=== PATIENT | male | born 1995 | race Two or more races ===

== ENCOUNTER 2021-01-27 09:04 | Emergency (ER) | payer OTHER, SELFPAY ==
[2021-01-27 09:28] VITALS: BP 145/99; PULSE 63; RESP 18; TEMP 36.7; O2SAT 97; BMI 23.0
--- NOTE | 2021-01-27 09:48 | ED_ITS ---
HPI - General Adult General Chief complaint: Upper Respiratory Symptoms Stated complaint: COUGH IN AM VOMITING Time Seen by Provider: 01/27/21 09:48 Source: patient Mode of arrival: ambulatory Limitations: no limitations History of Present Illness HPI narrative: 25-year-old male is here today for complaining of epigastric symptoms. He reports that when he wakes up in the morning he often has a nausea and vomiting. Patient denies any late night snacking denies any dysphagia, dyspepsia or odynophagia. Denies any constipation, diarrhea or abdominal pain. He reports that he smoked marijuana and started coughing and the cough made him gag and vomit. Patient reports that he smoked couple days ago. Patient denies any other symptoms. Denies any fever or chills, denies any ill contacts. No change in his diet Onset (ago): day(s) Related Data Previous Rx's Medication Instructions Recorded omeprazole 20 mg capsule,delayed 20 mg PO DAILY #20 cap 01/27/21 release ondansetron 4 mg disintegrating 4 mg PO Q8H PRN #7 tab 01/27/21 tablet Allergies Allergy/AdvReac Type Severity Reaction Status Date / Time No Known Allergies Allergy Verified 01/27/21 09:27 Review of Systems Review of Systems: Constitutional : No Weight loss, No Fever, No Chills, No Night Sweats, No Fatigue, No Malaise ENT/Mouth : No Hearing loss, No Ear Pain, No Nasal Congestion, No Sinus Pain, No Hoarseness, No sore throat, No Rhinorrhea, No Swallowing Difficulty Eyes: No Eye Pain, No Swelling, No Redness, No Foreign Body, No Discharge, No Vision Changes Cardiovascular : No Chest Pain, No SOB, No Dyspnea on Exertion, No Orthopnea, No Edema, No Palpitations Respiratory : No Cough, No Sputum, No Wheezing, No Smoke Exposure, No Dyspnea Gastrointestinal : Nausea, Vomiting, No Diarrhea, No Constipation, No abdominal Pain, No Hematochezia, No Melena Genitourinary : no irregular bleeding, No Dysuria, No Urinary Frequency, No Hematuria, No Urinary Incontinence, No Urgency, No Flank Pain, No Urinary Flow Changes, No Hesitancy Musculoskeletal : No joint pain, No Myalgias, No Joint Swelling Skin : No Skin Lesions, No rash Neuro : No Weakness, No Numbness, No Paresthesias, No Loss of Consciousness, No Dizziness, No Headache Yes all other systems are reviewed and are negative PMFSH Past Medical History Medical History (Updated 01/27/21 @ 11:08 by Kavya Ibnaez [facility]) Polycystic kidney disease Social History Social History Advance Directives: No Advance Directives Information Provided: No Physical Exam Vital Signs: Vital Signs: Last Vital Signs Temp 98.1 F 01/27/21 09:28 Pulse 63 01/27/21 09:28 Resp 18 01/27/21 09:28 BP 145/99 H 01/27/21 09:28 Pulse Ox 97 01/27/21 09:28 Body Mass Index 23.0 Const: General: healthy appearing, no acute distress and well developed Nutritional Appearance: well nourished Orientation/consciousness: patient oriented x3 HENMT: Head: Yes normal to inspection, Yes normocephalic and Yes atraumatic Neck: Neck: Yes normal visual inspection, Yes full ROM and Yes trachea midline Thyroid: Thyroid normal Resp: Auscultation: clear to auscultation bilaterally Cardio: Rate: regular rate Rhythm: regular rhythm Heart sounds: S1 normal heart sound present and S2 normal heart sound present GI: Inspection: Yes normal to inspection and No distended Palpation (GI): Soft to palpation, nontender, no guarding and No hepatosplenomegaly present Auscultation: normal bowel sounds Skin: General skin exam: elasticity normal, turgor normal and dry skin Neuro: General: patient oriented x3 Course Course Course Narrative: 25-year-old male is here today for complaining of nausea and vomiting. Patient reports that this usually happens in the morning when he wakes up. Patient reports that he smoked marijuana few days ago, started coughing which made him gag and vomit. He has not had any ill contact, no fever or chills. Denies any abdominal pain, discomfort, diarrhea, constipation. Patient reports that he does have occasional acid reflux without dyspepsia, dysphagia or odynophagia. His symptoms are usually in the morning. Patient denies any late night snacking. Likely viral. Will order COVID test medicate him with omeprazole Reevaluation(s) Reevaluation #1: COVID test negative. Will send patient home with omeprazole, he can take that in the morning I will give him script for Zofran and he can take that on as needed basis. Patient will need to follow-up with his primary care provider or general service officer. Patient is agreeable to this plan and verbalizes understanding of instructions . He was given the opportunity to ask questions and all questions answered Medical Decision Making Lab Data Labs: Lab Results 01/27/21 Range/Units 09:39 COVID-19 (NAJMA) Negative (Negative) COVID-19 Clin Com See Note Discharge Plan Discharge Clinical Impression: Viral gastritis Patient Disposition: Home, Self-Care Instructions: Gastritis (ED) Additional Instructions: You were seen here today for nausea, vomiting. Your symptoms are most likely viral. You were giving medication to help reduce the acid reflux. You will be giving script for that as well. You will also receive a script for nausea medicine. Please follow-up with your primary care doctor and general service officer if you continue to have those symptoms. You may return to emergency department if her symptoms will get worse or if you experience any additional concerning symptoms Prescriptions: New omeprazole 20 mg capsule,delayed release(DR/EC) 20 mg PO DAILY Qty: 20 RF: 0 ondansetron 4 mg tablet,disintegrating 4 mg PO Q8H PRN (Reason: nausea and vomiting) Qty: 7 RF: 0 Stand Alone Forms: Work/School Release Interventions: ED Discharge Assessment Last Done: 01/27/21 11:19 Discharge Date/Time: 01/27/21 11:19
[2021-01-27 10:24] LABS: COVID-19 Test Negative (Negative); IDNOW Serial# 9DD0AD1C
[2021-01-27] MEDS: Omeprazole 20 MG CAPSULE.DR PO (10:53)
== END 2021-01-27 11:19 | disposition home or self-care (01) ==
PROVIDERS: Emergency Provider Emergency Medicine
DX: A08.4 Viral intestinal infection, unspecified (principal); Z20.822 Contact with and (suspected) exposure to COVID-19
CPT/HCPCS: 36415; 87635; 99283

== ENCOUNTER 2023-12-29 09:59 | Inpatient (IN) | payer MEDICAID, SELFPAY ==
[2023-12-29 10:12] VITALS: BP 139/76; BP 156/96; PULSE 106; PULSE 72; RESP 18; TEMP 37.1; O2SAT 96; O2SAT 98; BMI 19.8
[2023-12-29 10:16] VITALS: RESP 16
--- NOTE | 2023-12-29 10:17 | PC.NURSE ---
patient refusing [employer] exchange administrator at this time
[2023-12-29 10:37] LABS: Appearance Urine Clear; Color Urine Yellow; Glucose Urine UA Negative (Negative); Leukocyte Esterase Urine Trace (Negative); Nitrite Urine Negative (Negative); PH 6.5 (5.0-9.0); UMIC TRIGGER UACC YES; Urine Blood Negative (Negative); Urine Ketones Trace mg/dL (Negative); Urine Protein 100 (2+) mg/dL (Neg-Trace)
--- NOTE | 2023-12-29 10:37 | PC.NURSE ---
pt changed over, now talking with NHAN Moran
[2023-12-29 10:42] LABS: Bacteria Urine None Seen (None Seen); Hyaline Casts Urine 0-2 /LPF (0-2); RBC Urine 0-2 /HPF (0-2); Squamous Epithelial Cell Urine 0-2 /HPF (0-2); WBC Urine 0-5 /HPF (0-5)
[2023-12-29 10:53] LABS: Amphetamine Screen Urine Not Detected (Not Detect); Barbiturates, Urine Not Detected (Not Detect); Benzodiazepines Screen Urine Not Detected (Not Detect); Buprenorphine Scr Not Detected (Not Detect); Cannabinoid Screen Urine POSITIVE (Not Detect); Cocaine Screen Urine Not Detected (Not Detect); Fentanyl, urine Not Detected (Not Detect); Methadone Screen, Urine Not Detected (Not Detect); Opiate Screen Urine Not Detected (Not Detect); Oxycodone Screen Urine Not Detected (Not Detect); Phencyclidine Screen Urine Not Detected (Not Detect)
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
[2023-12-29 11:07] LABS: MANUAL DIFF FLAG NO
[2023-12-29 11:15] LABS: Basophils Percent Auto 0.3 % (0-2); Eosinophils Absolute Auto 0.1 X10*3/uL (0.0-0.4); Eosinophils Percent Auto 1.8 % (0-4); Hematocrit 47.2 % (42.0-52.0); Hemoglobin 15.7 g/dl (14.0-18.0); Imm Gran Abs Auto 0.02 X10*3/uL (0.00-0.03); Imm Gran Pct Auto 0.3 % (0.0-0.4); Lymphocytes Absolute Auto 1.4 X10*3/uL (1.2-4.9); Mean Corpuscular HGB Conc 33.3 g/dl (31.0-36.0); Mean Corpuscular Volume 87.1 fL (80.0-98.0); Mean Platelet Volume 10.1 fL (9.4-12.4); Monocytes Absolute Auto 0.5 X10*3/uL (0.1-1.2); Monocytes Percent Auto 7.7 % (2-11); Neutrophils Absolute Auto 4.2 x10*3/uL (2.0-8.3); Neutrophils Percent Auto 67.9 % (45-73); Platelet Count 246 X10*3/uL (160-400); Red Blood Count 5.42 X10*6/uL (4.60-5.80); Red Cell Distribution Width 12.5 % (11.0-16.0); White Blood Count 6.2 X10*3/uL (4.8-10.8)
[2023-12-29 11:19] LABS: Carbon Monoxide POC 5.6 %
[2023-12-29 11:25] LABS: Carbon Monoxide Refer to POC result
--- NOTE | 2023-12-29 11:28 | ECG_ITS ---
Test Reason : CO2 POISONING Blood Pressure : / mmHG Vent. Rate : 057 BPM Atrial Rate : 057 BPM P-R Int : 140 ms QRS Dur : 090 ms QT Int : 390 ms P-R-T Axes : 057 067 073 degrees QTc Int : 379 ms Sinus bradycardia Abnormal ECG When compared with ECG of 06-JAN-2005 15:48, PREVIOUS ECG IS PRESENT No significant change was found Referred By: Luisa Mccarty Electronically Signed By:JOAQUIN HERNANDEZ
[2023-12-29 11:34] LABS: Acetaminophen LAB < 3 mcg/mL (<30); Alanine Aminotransferase 47 U/L (0-40); Alkaline Phosphatase 65 U/L (39-117); Anion Gap 14 (12-20); Aspartate Amino Transferase 42 U/L (5-37); Bilirubin Total 0.7 mg/dL (0.0-1.0); Blood Urea Nitrogen 14 mg/dL (9-16); Calcium 10.4 mg/dL (8.4-10.2); Carbon Dioxide 26 mmol/L (22-29); Chloride 104 mmol/L (96-108); Creatinine Clr Calc Pharmacy 100.7; Estimated Glomerular Filt Rate > 60; Ethanol < 10 mg/dL; Glucose Random 106 mg/dL (60-115); Potassium 3.9 mmol/L (3.3-5.1); Salicylate < 5.0 mg/dL (15-30); Sodium 140 mmol/L (135-145); Total Protein 7.8 g/dL (6.5-8.0)
--- NOTE | 2023-12-29 11:35 | PC.NURSE ---
Patient reports he is a heavy week smoker, states smoked nicotine heavily until last 2-3 months
[2023-12-29 11:51] LABS: Venous Blood Gas Refer to POC result
[2023-12-29 11:52] LABS: VBG Base Excess 3.5 mmol/L; VBG HCO3 27 mmol/L (22-26); VBG pCO2 40 mmHg; VBG pH 7.44 (7.32-7.43); VBG pO2 80 mmHg
--- NOTE | 2023-12-29 12:35 | PC.NURSE ---
Patient placed on non-rebreather per order. 1:1 at bedside, patient clam and cooperative
[2023-12-29 13:00] LABS: Carbon Monoxide Refer to POC result
[2023-12-29 13:00] LABS: Carbon Monoxide POC 3.1 %
--- NOTE | 2023-12-29 13:03 | PC.NURSE ---
per order patient removed from non-rebreather after 1 hour and labs drawn, provider aware
--- NOTE | 2023-12-29 13:29 | PC.NURSE ---
pt brought back to pod, report received from fadumo simpson. Pt tearful, speaking on phone at this time
[2023-12-29 15:18] VITALS: BP 115/66; PULSE 61; RESP 18; TEMP 37.7; O2SAT 98
--- NOTE | 2023-12-29 19:23 | PC.NURSE ---
patient appears to remain at rest at present respirations are even and ulabored patient appears in no distress.
[2023-12-29 19:49] VITALS: BP 114/85; PULSE 84; RESP 18; TEMP 36.8; O2SAT 97
[2023-12-30 06:29] VITALS: BP 125/80; PULSE 69; RESP 16; TEMP 36.6; O2SAT 98
--- NOTE | 2023-12-30 06:59 | PC.NURSE ---
Assumed care of patient at 0645, patient appears to be sleeping, respirations even and unlabored, no apparent distress noted. Continue plan of care for inpatient bedsearch on section 12a
[2023-12-30 14:08] VITALS: BP 126/80; PULSE 78; RESP 14; TEMP 36.8; O2SAT 99
[2023-12-30 19:43] VITALS: BP 113/89; PULSE 91; RESP 20; TEMP 36.8; O2SAT 98
[2023-12-31 06:05] VITALS: BP 128/77; PULSE 60; RESP 18; TEMP 36.2; O2SAT 99
--- NOTE | 2023-12-31 09:15 | PC.NURSE ---
Home Medications Spoke with patient - he does not take medications at home.
[2023-12-31 12:59] VITALS: BP 125/81; PULSE 66; RESP 14; TEMP 36.1; O2SAT 98
[2023-12-31 14:03] VITALS: BP 126/84; PULSE 75; TEMP 36.6; O2SAT 100
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
[2023-12-31] MEDS: FLUoxetine HCl 20 MG CAPSULE PO (16:04)
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
--- NOTE | 2023-12-31 16:22 | PC.NURSE ---
PT SIGNED A 3 DAY 12/31/23, UP 01/03/24.
[2023-12-31 19:11] VITALS: BP 136/88; PULSE 71; TEMP 36.9; O2SAT 98
[2023-12-31] MEDS: traZODone HCL 50 MG TABLET PO ×2 (21:03→21:59)
[2023-12-31] MEDS: guanFACINE HCl ER 1 MG TAB.ER.24H PO (21:03)
[2023-12-31] MEDS: hydrOXYzine HCL 25 MG TABLET PO (21:59)
[2024-01-01 08:14] LABS: Estimated Average Glucose 100 mg/dL; Hemoglobin A1c % 5.1 % (<6.0)
[2024-01-01 08:24] LABS: Cholesterol 166 mg/dL (<200); HDL Cholesterol 36 mg/dL (>40); LDL Cholesterol Calculated 117 mg/dL (<100); Triglycerides 68 mg/dL (<150)
[2024-01-01 08:41] LABS: Free T4 (Free Thyroxine) 1.03 ng/dL (0.71-1.85); Thyroid Stimulating Hormone 0.63 uIU/mL (0.32-4.0)
[2024-01-01 08:54] LABS: Folate 12.6 ng/mL (> or = 4.0); Vitamin B12 700 pg/mL (200-900)
[2024-01-01] MEDS: Omeprazole 20 MG CAPSULE.DR PO (08:55)
[2024-01-01] MEDS: FLUoxetine HCl 20 MG CAPSULE PO (08:55)
[2024-01-01] MEDS: hydrOXYzine HCL 25 MG TABLET PO ×3 (08:58→22:03)
--- NOTE | 2024-01-01 15:08 | P.PNPSI_ITS ---
Subjective Subjective Date of Service: 01/01/24 Reason For Visit: Interim History: friendly, calm, cooperative, grateful. reports having slept well after having taken trazodone 100 and hydroxyzine 50 last night. agreeable to increase intuniv to 2 mg tonight and schedule trazodone 100 QHS. mood a lot better. slept 8 hrs. trazodone to slep. 3-day up . Mental Status Exam Mental Status Exam Narrative: adequately dressed and groomed. cooperative, pleasant. no PMA/PMR. speech nml rate, amount, loudness, tone, latency. thoughts linear and logical affect full range, normo-intense, non-labile. mood a lot better. denies SI/SIBI/HI/AVH. Diagnostics Vital Signs (24Hr): Vital Signs - 24 hr 12/31/23 19:11 Temperature 98.4 F Pulse Rate 71 Blood Pressure 136/88 Pulse Oximetry 98 Oxygen Delivery Method Room Air BMI result Body Mass Index 19.8 Labs 12/29/23 11:03 12/29/23 11:04 Labs: Laboratory Results - last 48 hr 01/01/24 07:54 Estimat Average Glucose 100 Hemoglobin A1c % 5.1 Triglycerides 68 Cholesterol 166 LDL Cholesterol, Calc 117 H HDL Cholesterol 36 L Vitamin B12 700 Folate 12.6 TSH 0.63 Free T4 1.03 Medications Medications Current Medications Acetaminophen (Acetaminophen 325 Mg Tablet) 650 mg PO Q6H PRN PRN Reason: Headache/Pain Mild Scale (1-3) Al Hydroxide/Mg Hydroxide (Magnesium Hydrox/Alum Hydrox 30 Ml Oral.Susp) 30 ml PO Q6H PRN PRN Reason: Heartburn/Nausea Fluoxetine HCl (Fluoxetine Hcl 20 Mg Capsule) 20 mg PO DAILY [facility] Last Admin: 01/01/24 08:55 Dose: 20 mg Guanfacine HCl (Guanfacine Hcl Er 2 Mg Tab.Er.24h) 2 mg PO BEDTIME [facility] Hydroxyzine HCl (Hydroxyzine Hcl 25 Mg Tablet) 25 mg PO Q6H PRN PRN Reason: Anxiety Last Admin: 01/01/24 08:58 Dose: 25 mg Magnesium Hydroxide (Milk Of Magnesia 30 Ml Oral.Susp) 30 ml PO DAILY PRN PRN Reason: Constipation Nicotine Polacrilex (Nicotine Polacrilex 2 Mg Gum) 4 mg BUCCAL Q2H PRN PRN Reason: Nicotine Cravings Omeprazole (Omeprazole 20 Mg Capsule.Dr) 20 mg PO DAILY@0630 [facility] Last Admin: 01/01/24 08:55 Dose: 20 mg Trazodone HCl (Trazodone Hcl 100 Mg Tablet) 100 mg PO BEDTIME [facility] Trazodone HCl (Trazodone Hcl 50 Mg Tablet) 50 mg PO BEDTIME PRN PRN Reason: Insomnia Allergies Allergies Allergy/AdvReac Type Severity Reaction Status Date / Time No Known Allergies Allergy Verified 12/29/23 10:15 Assessment & Plan Assessment & Plan (1) Suicide attempt: Status: Acute Code(s): T14.91XA - Suicide attempt, initial encounter (2) Carbon monoxide exposure: Status: Acute Code(s): Z77.29 - Contact with and (suspected) exposure to other hazardous substances (3) Chronic post-traumatic stress disorder (PTSD): Status: Acute Code(s): F43.12 - Post-traumatic stress disorder, chronic Plan 12/30: restart outpt omeprazole order. start intuniv 1 mg for ADHD/PTSD Sx. start prozac for PTSD/depression. milieu therapy. 12/31: increase intuniv to 2 mg QHS. start trazodone 100 QHS. otherwise continue current mgmt and discharge planning. Reason for continued inpatient stay Substantial Risk for: harm to self, inability to function and rapid decompensation Time Spent With Patient Time: Total time managing care of this patient today __25__ minutes.
[2024-01-01 20:49] VITALS: BP 136/94; PULSE 82; RESP 14; TEMP 36.6; O2SAT 97
[2024-01-01] MEDS: guanFACINE HCl ER 2 MG TAB.ER.24H PO (21:46)
[2024-01-01] MEDS: traZODone HCL 100 MG TABLET PO (21:46)
[2024-01-02] MEDS: Omeprazole 20 MG CAPSULE.DR PO (09:42)
[2024-01-02] MEDS: FLUoxetine HCl 20 MG CAPSULE PO (09:42)
--- NOTE | 2024-01-02 10:30 | P.PNPSI_ITS ---
Subjective Subjective Date of Service: 01/02/24 Reason For Visit: SA Subjective Notes: 3 Day (01/03/24) Interim History: Dustin reports medications and milieu therapy are helpful. Reports improved mood. Discussed effects of 100 mg Trazodone, asks to trial 75 mg as he continues to feel the effects of the dosage from last night at 1415. Anxiety is decreased. Denies medical issues, however does report that he can feel a compression-like feeling in his head when his blood pressure is elevated. No current questions regarding regime. Discussed his plans with team for outpatient including therapy, medication mgt and anger mgt which he believes is a solid plan. Denies SI/HI/AH/VH sx psychosis. No sx of karthikeyan present. Plans DC on a three day notice on 01/03/24 to return to work. Medication Compliance: Yes Side effects from medications: Yes (Trazodone 100 mg he finds strong, asks to trial 75 mg) Attending Groups: Yes Review of Systems Acute medical concerns: No Denies Medical Review of Systems: unchanged Review of Systems Review of Systems Yes all other systems are reviewed and are negative (denies) Mental Status Exam Mental Status Exam Patient Appearance: Appropriate Patient Orientation: Person, Place, Time and Situation Level of Consciousness: Alert Patient Behavior: Appropriate, Talkative, Cooperative, Anxious (mild) and Good Eye Contact Mood Description: Anxious (mild, reports improvement) Affect Description: Apprehensive Patient Cognition Impaired: No Ability to Follow Directions: Good Speech Pattern: Spontaneous Speech Memory Description: Intact Hallucinations: None Delusions: Not Present Thought Process: Intact Thought Content: positive for Intact, positive for Suicidal Ideation (denies SI, plan, intent) and positive for Homicidal Ideation (denies SI, plan, intent) Depressive Symptoms: Increased Anxiety and Thoughts of /Suicide (denies SI, plan, intent) Judgement: Good Diagnostics Vital Signs (24Hr): Vital Signs - 24 hr 01/01/24 20:49 Temperature 97.9 F Pulse Rate 82 Respiratory Rate 14 Blood Pressure 136/94 H Pulse Oximetry 97 Oxygen Delivery Method Room Air BMI result Body Mass Index 19.8 Labs 12/29/23 11:03 12/29/23 11:04 Labs: Laboratory Results - last 48 hr 01/01/24 07:54 Estimat Average Glucose 100 Hemoglobin A1c % 5.1 Triglycerides 68 Cholesterol 166 LDL Cholesterol, Calc 117 H HDL Cholesterol 36 L Vitamin B12 700 Folate 12.6 TSH 0.63 Free T4 1.03 Medications Medications Current Medications Acetaminophen (Acetaminophen 325 Mg Tablet) 650 mg PO Q6H PRN PRN Reason: Headache/Pain Mild Scale (1-3) Al Hydroxide/Mg Hydroxide (Magnesium Hydrox/Alum Hydrox 30 Ml Oral.Susp) 30 ml PO Q6H PRN PRN Reason: Heartburn/Nausea Fluoxetine HCl (Fluoxetine Hcl 20 Mg Capsule) 20 mg PO DAILY [facility] Last Admin: 01/02/24 09:42 Dose: 20 mg Guanfacine HCl (Guanfacine Hcl Er 2 Mg Tab.Er.24h) 2 mg PO BEDTIME [facility] Last Admin: 01/01/24 21:46 Dose: 2 mg Hydroxyzine HCl (Hydroxyzine Hcl 25 Mg Tablet) 25 mg PO Q6H PRN PRN Reason: Anxiety Last Admin: 01/01/24 22:03 Dose: 25 mg Magnesium Hydroxide (Milk Of Magnesia 30 Ml Oral.Susp) 30 ml PO DAILY PRN PRN Reason: Constipation Nicotine Polacrilex (Nicotine Polacrilex 2 Mg Gum) 4 mg BUCCAL Q2H PRN PRN Reason: Nicotine Cravings Omeprazole (Omeprazole 20 Mg Capsule.Dr) 20 mg PO DAILY@0630 [facility] Last Admin: 01/02/24 09:42 Dose: 20 mg Trazodone HCl (Trazodone Hcl 100 Mg Tablet) 100 mg PO BEDTIME [facility] Last Admin: 01/01/24 21:46 Dose: 100 mg Trazodone HCl (Trazodone Hcl 50 Mg Tablet) 50 mg PO BEDTIME PRN PRN Reason: Insomnia Allergies Allergies Allergy/AdvReac Type Severity Reaction Status Date / Time No Known Allergies Allergy Verified 12/29/23 10:15 Assessment & Plan Assessment & Plan (1) Suicide attempt: Status: Acute Code(s): T14.91XA - Suicide attempt, initial encounter (2) Carbon monoxide exposure: Status: Acute Code(s): Z77.29 - Contact with and (suspected) exposure to other hazardous substances (3) Chronic post-traumatic stress disorder (PTSD): Status: Acute Code(s): F43.12 - Post-traumatic stress disorder, chronic Plan 12/30: restart outpt omeprazole order. start intuniv 1 mg for ADHD/PTSD Sx. start prozac for PTSD/depression. milieu therapy. 12/31: increase intuniv to 2 mg QHS. start trazodone 100 QHS. otherwise continue current mgmt and discharge planning. 01/01: Decrease Trazodone to 75 mg HS. Continue prn Trazodone Continue remainder of regime. Patient educated on: medication risk/benefits and therapeutic strategies Informed Consent: understands Reason for continued inpatient stay Substantial Risk for: harm to self Time Spent With Patient Time: Total time managing care of this patient today ____ minutes.
[2024-01-02 20:00] VITALS: BP 111/67; PULSE 73; RESP 16; TEMP 36.9; O2SAT 97
[2024-01-02] MEDS: traZODone HCL 25 MG HALFTAB 75 MG PO (21:49)
[2024-01-02] MEDS: guanFACINE HCl ER 2 MG TAB.ER.24H PO (21:50)
[2024-01-02] MEDS: hydrOXYzine HCL 25 MG TABLET PO (21:50)
[2024-01-03 07:00] VITALS: BMI 23.3
[2024-01-03 08:00] VITALS: BP 118/77; PULSE 75; RESP 16; TEMP 36.4; O2SAT 99
[2024-01-03] MEDS: FLUoxetine HCl 20 MG CAPSULE PO (08:38)
[2024-01-03] MEDS: Omeprazole 20 MG CAPSULE.DR PO (08:38)
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
== END 2024-01-03 11:58 | disposition home or self-care (01) | DRG 755 ==
LOC: HO.ED 12-31 08:42 → HO.PADLT16 12-31 12:47
PROVIDERS: Physician Assistant; Admitting Provider Psychiatry & Neurology Psychiatry; Emergency Provider Emergency Medicine Emergency Medical Services; Visit Provider Psychiatry & Neurology Psychiatry
DX: F43.12 Post-traumatic stress disorder, chronic (principal); Q61.3 Polycystic kidney, unspecified; T58.12XA Toxic effect of carbon monoxide from utility gas, intentional self-harm, initial encounter; Z62.811 Personal history of psychological abuse in childhood; Z62.810 Personal history of physical and sexual abuse in childhood; Z87.891 Personal history of nicotine dependence; Z79.899 Other long term (current) drug therapy
CPT/HCPCS: 36415; 80053; 80061; 80143; 80179; 80307; 81001; 82375; 82607; 82746; 82803; 83036; 84439; 84443; 85025; 93005; 99285; S9485